=== PATIENT | female | born 1960 | race African-American/Black ===

== ENCOUNTER 2016-11-07 09:53 | Inpatient (IN) | payer MEDICAID ==
[~2016-11-07] VITALS: Ht 177.8 cm; Wt 87.6 kg
[~2016-11-07 09:53] MED LIST: COREG; LEVOXYL; LEXAPRO; RALT400T PO; [UNRECOGNIZED DRUG - CODE]; [UNRECOGNIZED DRUG - OTHER]
[2016-11-07 10:08] VITALS: BP 150/94
--- NOTE | 2016-11-07 10:16 | NUR ---
PT AMBULATED TO BED 3.
--- NOTE | 2016-11-07 10:20 | NUR ---
PT C/O CHEST PAIN 10/10 WITH N/V/D SINCE LAST NIGHT; HX; HIV, CHF, HEART ATTACK . SKIN IS PINK/WARM/DRY; AAOX4 WITH EVEN AND STEADY GAIT; HR EVEN AND REGULAR; PT DENIES ANY FEVER, SOB, OR COUGH AT THIS TIME; PATIENT STATES PAIN OF 10/10 AT THIS TIME; VSS; PATIENT POSITIONED FOR COMFORT; HOB ELEVATED; BEDRAILS UP X2; BED DOWN. ER MD MADE AWARE OF PT STATUS.
--- NOTE | 2016-11-07 10:45 | NUR ---
ER MD DR. WARREN EVALUATING PT AT BEDSIDE.
[2016-11-07] MEDS ORDERED: NACL 0.9% 1,000 ML IV ONE (10:56)
[2016-11-07] MEDS ORDERED: ONDANSETRON 4 MG/2 ML VIAL IVP ONE (11:00)
[2016-11-07 11:20] LABS: BASOPHILS # (AUTO) 0.1 K/uL (0.00-0.22); EOSINOPHILS # (AUTO) 0.4 K/uL (0-0.4); EOSINOPHILS % (AUTO) 5.7 % (0.0-4.0); HEMATOCRIT 44.2 % (36-48); HEMOGLOBIN 14.8 g/dL (12.0-16.0); LYMPHOCYTES % (AUTO) 12.9 % (20.5-51.1); MEAN CORPUSCULAR HEMOGLOBIN 33 pg (27-31); MEAN CORPUSCULAR HGB CONC 33 g/dL (33-37); MEAN CORPUSCULAR VOLUME 98 fL (80-94); MONOCYTES # (AUTO) 0.4 K/uL (0.8-1.0); MONOCYTES % (AUTO) 4.7 % (1.7-9.3); NEUTROPHILS # (AUTO) 5.9 K/uL (1.8-7.7); NEUTROPHILS % (AUTO) 75.7 % (42.2-75.2); PLATELET COUNT (AUTO) 121 K/uL (140-450); RED BLOOD CELL COUNT(AUTO) 4.53 MIL/uL (4.20-5.40); RED CELL DISTRIBUTION WIDTH 13.1 % (11.6-13.7); WHITE BLOOD COUNT (AUTO) 7.8 K/uL (4.8-10.8)
[2016-11-07] MEDS ORDERED: KETOROLAC 30 MG/ML VIAL IVP ONE (11:25)
--- NOTE | 2016-11-07 11:26 | NUR ---
Patient taken to CT scan via gurney by [employer].
[2016-11-07 11:33] LABS: ANION GAP 12.5 (8-16); CARBON DIOXIDE 26.1 mmol/L (21-32); CREATININE 1.2 mg/dL (0.6-1.3); POTASSIUM 3.6 mmol/L (3.5-5.1)
[2016-11-07 11:38] LABS: ALBUMIN 3.9 g/dL (3.4-5.0); TOTAL BILIRUBIN 0.7 mg/dL (0.0-1.0)
[2016-11-07] MEDS ORDERED: ALBUTEROL SULFATE/IPRATROPIU 3 ML SOL IH ONE (12:15)
--- NOTE | 2016-11-07 12:17 | NUR ---
RT AT BEDSIDE.
--- NOTE | 2016-11-07 12:21 | NUR ---
Breathing treatment administered by respiratory therapist at bedside.
[2016-11-07] MEDS: NACL 0.9% 1,000 ML IV SCH (12:48)
[2016-11-07 12:50] LABS: APPEARANCE,URINE HAZY (CLEAR); BILIRUBIN,URINE 1+ (NEGATIVE); BLOOD, URINE 3+ (NEGATIVE); COLOR,URINE YELLOW (YELLOW); LEUKOCYTE ESTERASE ,URINE 1+ (NEGATIVE); NITRITE, URINE NEGATIVE (NEGATIVE); UGLUCOSE NEGATIVE (NEGATIVE)
[2016-11-07] MEDS ORDERED: ACETAMINOPHEN 325 MG TAB PO PRN (12:50)
[2016-11-07] MEDS ORDERED: HYDROcodone/APAP 7.5/325 MG 1 TAB PO PRN (12:50)
[2016-11-07] MEDS ORDERED: ONDANSETRON 4 MG/2 ML VIAL IM/IVP PRN (12:50)
[2016-11-07] MEDS ORDERED: DOCUSATE SODIUM 100 MG GELCAP PO PRN (12:50)
--- NOTE | 2016-11-07 12:58 | NUR ---
[facility] residents evaluating patient at bedside.
[2016-11-07 13:00] LABS: WBC,URINE 6-15 (FEW) /HPF (0-5)
[2016-11-07 13:02] LABS: RBC,URINE 11-20 (MOD) /HPF (0-5)
[2016-11-07 13:33] LABS: MAGNESIUM 1.8 mg/dL (1.8-2.4); PHOSPHORUS 2.7 mg/dL (2.5-4.9); THYROID STIMULATING HORMONE 2.88 uIU/mL (0.34-3.74)
--- NOTE | 2016-11-07 13:37 | NUR ---
PT STATED PAIN RELIEVED. BP 129/92, HR 81, O2 SAT 95%, RR 18. LUZ LTRANSFER PT TO TELE 113, REPORT GIVEN TO COTTON STRIPPER JAY.
--- NOTE | 2016-11-07 13:45 | NUR ---
TRANSFFERED PT TO TELE.ACCOMPANIED BY RN AND EMT.
[2016-11-07 14:25] VITALS: BP 123/98
--- NOTE | 2016-11-07 14:35 | NUR ---
RECEIVED PATIENT FROM ER NURSE, NO SIGNS AND SYMPTOMS OF DISTRESS NOTED AT THIS TIME. PATIENT IS ALERT AND ORIENTED X4, ON RM AIR, HAS NO COMPLAINTS OF PAIN AT THIS TIME. CALL LIGHT WITHIN REACH.
[2016-11-07 15:53] LABS: BARBITURATE, URINE NEG. ng/ml (NEG <=200); BENZODIAZEPINE, URINE NEG. ng/mL (NEG <=200); CANNABINOID, URINE NEG. ng/mL (NEG <=50); COCAINE, URINE POS. ng/mL (NEG <=300); OPIATE, URINE NEG. ng/mL (NEG <=2000); PHENCYCLIDINE SCREEN,URINE NEG. ng/mL (NEG <=25)
[2016-11-07] MEDS ORDERED: ALBUTEROL SULFATE/IPRATROPIU 3 ML SOL IH PRN (15:55)
[2016-11-07 16:00] VITALS: BP 134/87
--- NOTE | 2016-11-07 16:30 | NUR ---
SCDS PLACED ON PATIENT.
--- NOTE | 2016-11-07 17:15 | NUR ---
AWAKE AND ALERT RESPONSIVE TO UNIT CONTROL WORKER VERBAL COMMANDS SFW POSITION ASSESSMENT DONE PATIENT C/O OF ABDOMINAL PAIN AND SOB HHN PRN THERAPY GIVEN AT THIS TIME MONSE/RN AT BEDSIDE AWARE OF ABDOMINAL PAIN
[2016-11-07] MEDS: MORPHINE SULFATE 2 MG/ML SYR IVP PRN (17:32)
[2016-11-07] MEDS ORDERED: LEVOFLOXACIN 750 MG/D5W PREMIX 150 ML IV SCH (18:00)
--- NOTE | 2016-11-07 18:00 | NUR ---
PT MEDICATED FOR DISCOMFORT. NO S/S OF ACUTE DISTRESS NOTED. ALERT AND ORIENTED.
[2016-11-07] MEDS: ALBUTEROL SULFATE/IPRATROPIU 3 ML SOL IH SCH (19:22)
[2016-11-07] MEDS: BUDESONIDE 0.25 MG/2 ML NEBU INH SCH (19:22)
--- NOTE | 2016-11-07 19:48 | NUR ---
ENDORSED PLAN OF CARE TO NIGHT NURSE AT PT BEDSIDE. NO S/S OF ACUTE DISTRESS NOTED.
--- NOTE | 2016-11-07 19:50 | NUR ---
RECEIVED REPORT FROM DAY RN. PATIENT RESTING IN BED, AWAKE ALERT ORIENTED X 4, NO S/S OF ACUTE DISTRESS NOTED, IV PATENT AND INTACT, INFUSING NS AT 50ML/HR. PATIENT DENIES PAIN AT THIS TIME. RESPIRATION EVEN AND UNLABORED, CALL LIGHT WITHIN REACH, SAFETY MEASURE ENSURED, WILL CONTINUE TO MONITOR.
[2016-11-07 20:00] VITALS: BP 135/94
[2016-11-07] MEDS: GABAPENTIN 100 MG CAP PO SCH (20:51)
--- NOTE | 2016-11-07 20:55 | NUR ---
PM MEDICATION GIVEN, PATIENT TOLERATED WELL. WILL CONTINUE TO MONITOR
[2016-11-08] VITALS: BP 127/83
--- NOTE | 2016-11-08 00:35 | NUR ---
PATIENT ASLEEP IN BED, NO S/S OF ACUTE DISTRESS NOTED, RESPIRATION EVEN AND UNLABORED, CALL LIGHT WITHIN REACH, SAFETY MEASURE ENSURED, WILL CONTINUE TO MONITOR.
[2016-11-08] MEDS: ALBUTEROL SULFATE/IPRATROPIU 3 ML SOL IH SCH ×3 (01:00→14:00)
--- NOTE | 2016-11-08 01:10 | NUR ---
0110 PT ASLEEP DID NOT DISTURB. NO SOB NOTED
[2016-11-08] MEDS: NACL 0.9% 1,000 ML IV SCH (02:40)
--- NOTE | 2016-11-08 02:40 | NUR ---
PATIENT ASLEEP IN BED, NO S/S OF ACUTE DISTRESS NOTED, RESPIRATION EVEN AND UNLABORED, CALL LIGHT WITHIN REACH, SAFETY MEASURE ENSURED, WILL CONTINUE TO MONITOR.
[2016-11-08 04:00] VITALS: BP 116/76
[2016-11-08] MEDS: MORPHINE SULFATE 2 MG/ML SYR IVP PRN ×2 (04:32→10:33)
--- NOTE | 2016-11-08 04:39 | NUR ---
PATIENT STILL SLEEPING, NO S/S OF ACUTE DISTRESS NOTED, RESPIRATION EVEN AND UNLABORED, CALL LIGHT WITHIN REACH, SAFETY MEASURE ENSURED, WILL CONTINUE TO MONITOR.
[2016-11-08 05:57] LABS: BASOPHILS # (AUTO) 0.1 K/uL (0.00-0.22); BASOPHILS % (AUTO) 1.9 % (0.0-2.0); EOSINOPHILS # (AUTO) 0.4 K/uL (0-0.4); EOSINOPHILS % (AUTO) 8.2 % (0.0-4.0); HEMATOCRIT 40.3 % (36-48); HEMOGLOBIN 13.1 g/dL (12.0-16.0); LYMPHOCYTES # (AUTO) 1.1 K/uL (2.5-16.5); LYMPHOCYTES % (AUTO) 20.3 % (20.5-51.1); MEAN CORPUSCULAR HEMOGLOBIN 32 pg (27-31); MEAN CORPUSCULAR HGB CONC 33 g/dL (33-37); MEAN CORPUSCULAR VOLUME 97 fL (80-94); MONOCYTES # (AUTO) 0.5 K/uL (0.8-1.0); MONOCYTES % (AUTO) 8.9 % (1.7-9.3); NEUTROPHILS # (AUTO) 3.3 K/uL (1.8-7.7); NEUTROPHILS % (AUTO) 60.7 % (42.2-75.2); PLATELET COUNT (AUTO) 98 K/uL (140-450); RED BLOOD CELL COUNT(AUTO) 4.14 MIL/uL (4.20-5.40); RED CELL DISTRIBUTION WIDTH 12.9 % (11.6-13.7); WHITE BLOOD COUNT (AUTO) 5.4 K/uL (4.8-10.8)
[2016-11-08 06:15] LABS: ANION GAP 12.4 (8-16); CREATININE 1.2 mg/dL (0.6-1.3); POTASSIUM 3.4 mmol/L (3.5-5.1)
[2016-11-08 06:16] LABS: MAGNESIUM 1.8 mg/dL (1.8-2.4); PHOSPHORUS 2.9 mg/dL (2.5-4.9)
[2016-11-08] MEDS ORDERED: LEVOTHYROXINE 0.025 MG TAB PO SCH (06:30)
--- NOTE | 2016-11-08 07:17 | NUR ---
ASPIRIN 81MG GIVEN ORDERED, PATIENT TOLERATED WELL.
--- NOTE | 2016-11-08 07:17 | NUR ---
PATIENT HAS BEEN SCREENED AND CATEGORIZED HIGH NUTRITION RISK. PATIENT WILL BE SEEN WITHIN 1-2 DAYS OF ADMISSION. 11/08/16-11/09/[address]
[2016-11-08] MEDS ORDERED: ECOTRIN 81 MG TABEC PO SCH (07:30)
--- NOTE | 2016-11-08 07:30 | NUR ---
RECEIVED REPORT FROM BAND MACHINE OPERATOR RN FOR CONTINUITY OF CARE. PATIENT SLEEPING BUT EASILY AWAKEN WITH INITIAL ASSESSMENT. NO S/S OF RESP DISTRESS NOTED . IV SITE RT FA GAUGE 20 INTACT AND PATENT , IVF INFUSING WELL. PLAN OF CARE DISCUSSED WITH PATIENT, PT VERBALIZED UNDERSTANDING. VITALS STABLE AT THIS TIME. NO C/O PAIN AT THIS TIME. WILL CONTINUE TO MONITOR.
--- NOTE | 2016-11-08 07:32 | NUR ---
REPORT GIVEN TO DAY RN. PATIENT RESTING IN BED, NO S/S OF ACUTE DISTRESS NOTED, IN STABLE CONDITION.
[2016-11-08 07:33] LABS: T4 (THYROXINE) 5.9 ug/dL (4.5-12.0)
[2016-11-08] MEDS: BUDESONIDE 0.25 MG/2 ML NEBU INH SCH (07:35)
--- NOTE | 2016-11-08 07:35 | NUR ---
ASLEEP EASILY AWAKENS RESONSIVE TO OUTER DIAMETER GRINDER TOOL COMMANDS LFW POSITION ON LEFT SIDE
[2016-11-08] MEDS: GABAPENTIN 100 MG CAP PO SCH (08:36)
[2016-11-08] MEDS ORDERED: LISINOPRIL 5 MG TAB PO SCH (09:00)
[2016-11-08] MEDS ORDERED: ATORVASTATIN 20 MG TAB PO SCH (09:00)
[2016-11-08] MEDS ORDERED: METOPROLOL SUCCINATE 50 MG TABER PO SCH (09:00)
[2016-11-08] MEDS ORDERED: SERTRALINE 50 MG TAB PO SCH (09:00)
--- NOTE | 2016-11-08 09:05 | NUR ---
[facility] SPOKE [facility] SUSSY[facility] HE SAID THEY ARE DELIGATED FOR THIS PATIENT. FAX REVIEW TO THEM AT [phone]. THE PHYSICAL EDUCATION SPECIALIST IS MILLA [phone],. FAXED INITIAL REVIEW. CALLED [employer] AND SPOKE WITH RAMON. SHE SAID ONLY FAX REVIEWS TO [employer], NOT TO [facility].
--- NOTE | 2016-11-08 09:47 | NUR ---
11/08/16 RD INITIAL ASSESSMENT COMPLETED PLEASE REFER TO NUTRITION ASSESSMENT UNDER CARE ACTIVITY FOR ESTIMATED NUTRITIONAL NEEDS. 1. CONTINUE CARDIAC DIET 2. RD TO FOLLOW UP WITHIN 2-3 DAYS; HIGH RISK GEOVANI FRIEND RD
--- NOTE | 2016-11-08 10:00 | NUR ---
RECEIVED REPORT FROM BRENT ACEVES FOR CONTINUITY OF CARE. PATIENT AWAKE ALERT AND ORIENTED X 4 NO S/S OF RESP DISTRESS NOTED C/O OF CHEST PAIN WILL MEDICATE. IV SITE RT FA GAUGE 20 INTACT AND PATENT , IVF INFUSING WELL. PLAN OF CARE DISCUSSED WITH THE PATIENT VITALS STABLE WILL CONTINUE TO MONITOR.
--- NOTE | 2016-11-08 10:19 | NUR ---
RECEIVED A CALL FROM MIGUEL ÁNGEL FROM [employer] SHE REQUESTED REVIEW SENT TO HER AT [phone] PHONE [phone]. REVIEW FAXED.
[2016-11-08 10:31] VITALS: BP 112/62
--- NOTE | 2016-11-08 10:35 | NUR ---
C/O CHEST PAIN /10 MEDICATED WITH MORPHINE 2 MG IVP. VITALS STABLE.
[2016-11-08] MEDS ORDERED: DOLU25TA PO (12:05)
[2016-11-08] MEDS ORDERED: EMTR1TAB16 PO (12:05)
[2016-11-08] MEDS ORDERED: QUET200T PO (12:06)
[2016-11-08] MEDS ORDERED: SYN.1 PO (12:08)
[2016-11-08] MEDS ORDERED: GABA800T3 PO (12:08)
[2016-11-08] MEDS ORDERED: SERT100T1 PO (12:08)
--- NOTE | 2016-11-08 15:40 | NUR ---
PATIENT WANTED TO GO HOME BUT REFUSED TO SIGN AMA PAPER DR CAVAZOS(RESIDENT) EXPLAIN THE HIGH RISK OF LEAVING AGAINST MEDICAL ADVISE , RECOMMENDED THE LONG WALL SHEAR OPERATOR TO COME AND SEE HER BUT PATIENT STILL REFUSED TO STAY AND WANTED TO GO. HOME MEDS GIVEN REMOVED IV LINE .
--- NOTE | 2016-11-08 16:00 | NUR ---
PATIENT CALM AND QUITE STATED WANTED TO STAY UNTIL SHE GETS A DISCHARGE . VITALS STABLE NOTIFIED MD WILL CONTINUE TO MONITOR.
--- NOTE | 2016-11-08 17:22 | NUR ---
DISCHARGE INSTRUCTION GIVEN VERBALIZED UNDERSTANDING, ALL PAPER WORK SIGNED BY THE PATIENT HOME MEDS GIVEN . D/C PATIENT HOME ACCOMPANY BY HER FAMILY MEMBER . STABLE CONDITION UPON DISCHARGE.
[2016-11-08 17:24] VITALS: BP 120/69
--- NOTE | 2016-11-12 07:54 | NUR ---
PER REQUEST OF MILLA FROM [employer], DISCHARGE SUMMARY FAXED TO HER AT [phone]
== END 2016-11-08 17:27 | disposition home or self-care (01) | DRG 465 ==
LOC: MED 09:53 → MTU 12:53
PROVIDERS: ADMIT Family Medicine; ATTEND Family Medicine
DX: N20.0 Calculus of kidney (principal); N17.0 Acute kidney failure with tubular necrosis; I11.0 Hypertensive heart disease with heart failure; I50.9 Heart failure, unspecified; D69.6 Thrombocytopenia, unspecified; N39.0 Urinary tract infection, site not specified; E03.9 Hypothyroidism, unspecified; F32.9 Major depressive disorder, single episode, unspecified; F17.210 Nicotine dependence, cigarettes, uncomplicated; B19.20 Unspecified viral hepatitis C without hepatic coma; J44.9 Chronic obstructive pulmonary disease, unspecified; I25.2 Old myocardial infarction; Z90.49 Acquired absence of other specified parts of digestive tract; Z79.899 Other long term (current) drug therapy
CPT/HCPCS: 36415; 71020; 80048; 80053; 80305; 81001; 82150; 83036; 83690; 83735; 83880; 84100; 84436; 84443; 84479; 84484; 85025; 87081; 87086; 93005; 94640; 96374; 96375; 99285; J1885; J1956; J2270; J2405; J7030; J7620; J7626

== ENCOUNTER 2018-12-22 10:45 | Inpatient (IN) | payer MEDICAID ==
[~2018-12-22] VITALS: Ht 177.8 cm; Wt 85.3 kg
[~2018-12-22 10:45] MED LIST changes: -COREG; +DOLU25TA PO; +EMTR1TAB16 PO; +GABA800T6 PO; -LEVOXYL; -LEXAPRO; +QUET200T PO; -RALT400T PO; +SERT100T1 PO; +SYN.1 PO; -[UNRECOGNIZED DRUG - OTHER]
[2018-12-22 10:57] VITALS: BP 135/95
[2018-12-22] MEDS ORDERED: predniSONE 20 MG TAB PO ONE (11:25)
[2018-12-22] MEDS ORDERED: IPRATROPIUM 0.02% 0.5 MG/2.5 ML NEBU INH ONE (11:25)
[2018-12-22] MEDS ORDERED: ALBUTEROL 0.083% 2.5 MG/3 ML NEBU INH ONE (11:25)
[2018-12-22 12:31] LABS: BASOPHILS # (AUTO) 0.1 K/uL (0.00-0.22); BASOPHILS % (AUTO) 0.5 % (0.0-2.0); EOSINOPHILS # (AUTO) 0.2 K/uL (0-0.4); EOSINOPHILS % (AUTO) 1.4 % (0.0-4.0); HEMATOCRIT 40.7 % (36-48); HEMOGLOBIN 13.5 g/dL (12.0-16.0); LYMPHOCYTES # (AUTO) 3.3 K/uL (2.5-16.5); LYMPHOCYTES % (AUTO) 26.2 % (20.5-51.1); MEAN CORPUSCULAR HEMOGLOBIN 31 pg (27-31); MEAN CORPUSCULAR HGB CONC 33 g/dL (33-37); MEAN CORPUSCULAR VOLUME 94.5 fL (80-94); MONOCYTES # (AUTO) 0.6 K/uL (0.8-1.0); MONOCYTES % (AUTO) 4.5 % (1.7-9.3); NEUTROPHILS # (AUTO) 8.5 K/uL (1.8-7.7); NEUTROPHILS % (AUTO) 67.4 % (42.2-75.2); PLATELET COUNT (AUTO) 125 K/uL (140-450); RED BLOOD CELL COUNT(AUTO) 4.31 MIL/uL (4.20-5.40); RED CELL DISTRIBUTION WIDTH 13.3 % (11.6-13.7); WHITE BLOOD COUNT (AUTO) 12.6 K/uL (4.8-10.8)
[2018-12-22 12:42] LABS: ANION GAP 15.1 (8-16); CARBON DIOXIDE 25.6 mmol/L (21-32); CREATININE 1.1 mg/dL (0.6-1.3); POTASSIUM 3.7 mmol/L (3.5-5.1)
[2018-12-22 12:45] LABS: PROTHROMBIN TIME 10.1 secs (10.8-13.4)
[2018-12-22 12:48] LABS: ALBUMIN 3.7 g/dL (3.4-5.0); TOTAL BILIRUBIN 0.7 mg/dL (0.0-1.0)
[2018-12-22 13:24] LABS: BILIRUBIN,URINE NEGATIVE (NEGATIVE); NITRITE, URINE NEGATIVE (NEGATIVE); UGLUCOSE NEGATIVE (NEGATIVE)
[2018-12-22] MEDS ORDERED: SULFAMETH/TRIMETH DS 800/160MG 1 TAB PO ONE (14:25)
[2018-12-22] MEDS ORDERED: cefTRIAXone 1,000 MG VIAL ONE (14:27)
[2018-12-22] MEDS ORDERED: ACETAMINOPHEN 325 MG TAB PO PRN (14:30)
[2018-12-22] MEDS ORDERED: ONDANSETRON 4 MG/2 ML VIAL IM/IVP PRN (14:30)
[2018-12-22] MEDS ORDERED: HYDROcodone/APAP 7.5/325 MG 1 TAB PO PRN (14:30)
[2018-12-22] MEDS ORDERED: MORPHINE SULFATE 2 MG/ML SYR IVP PRN (14:30)
[2018-12-22] MEDS ORDERED: DOCUSATE SODIUM 100 MG GELCAP PO PRN (14:30)
[2018-12-22 15:00] VITALS: BP 113/80
[2018-12-22] MEDS: NACL 0.9% 1,000 ML IV SCH (16:03)
[2018-12-22 16:24] LABS: CHOL/HDL RATIO 2.8 (1-4.5); FREE T4 (FREE THYROXINE) 1.31 ng/dL (0.76-1.46); MAGNESIUM 1.9 mg/dL (1.8-2.4); PHOSPHORUS 3.2 mg/dL (2.5-4.9); THYROID STIMULATING HORMONE 0.55 uIU/mL (0.34-3.74)
[2018-12-22] MEDS: AZITHROMYCIN 250 MG in DEXTROSE 5% 250 ML IV SCH (18:25)
[2018-12-22 20:00] VITALS: BP 121/73
[2018-12-22] MEDS: ALBUTEROL SULFATE/IPRATROPIU 3 ML SOL IH SCH (20:38)
[2018-12-22] MEDS: QUEtiapine FUMARATE 100 MG TAB PO SCH ×2 (21:00→21:11)
[2018-12-22 21:04] LABS: BARBITURATE, URINE NEG. ng/ml (NEG <=200); BENZODIAZEPINE, URINE NEG. ng/mL (NEG <=200); CANNABINOID, URINE NEG. ng/mL (NEG <=50); COCAINE, URINE NEG. ng/mL (NEG <=300); OPIATE, URINE NEG. ng/mL (NEG <=2000); PHENCYCLIDINE SCREEN,URINE NEG. ng/mL (NEG <=25)
[2018-12-22 21:20] LABS: APPEARANCE,URINE CLEAR (CLEAR); COLOR,URINE YELLOW (YELLOW)
[2018-12-22 21:21] LABS: BLOOD, URINE NEGATIVE (NEGATIVE); LEUKOCYTE ESTERASE ,URINE NEGATIVE (NEGATIVE); PH,URINE 5.5 (5.0-9.0)
[2018-12-22 21:27] LABS: RBC,URINE 0-5 /HPF (0-5); WBC,URINE 0-5 /HPF (0-5)
[2018-12-23] VITALS: BP 114/81
[2018-12-23] MEDS: NACL 0.9% 1,000 ML IV SCH ×3 (03:24→15:54)
[2018-12-23 04:00] VITALS: BP 119/78
[2018-12-23] MEDS: LEVOTHYROXINE 0.1 MG TAB PO SCH (05:42)
[2018-12-23 06:48] LABS: BASOPHILS % (AUTO) 0.4 % (0.0-2.0); EOSINOPHILS % (AUTO) 0.3 % (0.0-4.0); HEMATOCRIT 38.3 % (36-48); HEMOGLOBIN 12.7 g/dL (12.0-16.0); LYMPHOCYTES # (AUTO) 2.7 K/uL (2.5-16.5); LYMPHOCYTES % (AUTO) 21.5 % (20.5-51.1); MEAN CORPUSCULAR HEMOGLOBIN 31 pg (27-31); MEAN CORPUSCULAR HGB CONC 33 g/dL (33-37); MEAN CORPUSCULAR VOLUME 94.6 fL (80-94); MONOCYTES # (AUTO) 0.8 K/uL (0.8-1.0); MONOCYTES % (AUTO) 6.1 % (1.7-9.3); NEUTROPHILS % (AUTO) 71.7 % (42.2-75.2); PLATELET COUNT (AUTO) 124 K/uL (140-450); RED BLOOD CELL COUNT(AUTO) 4.04 MIL/uL (4.20-5.40); RED CELL DISTRIBUTION WIDTH 13.3 % (11.6-13.7); WHITE BLOOD COUNT (AUTO) 12.5 K/uL (4.8-10.8)
[2018-12-23] MEDS: ALBUTEROL SULFATE/IPRATROPIU 3 ML SOL IH SCH ×3 (06:53→19:02)
[2018-12-23 07:49] LABS: ANION GAP 15.7 (8-16); CARBON DIOXIDE 23.4 mmol/L (21-32); CREATININE 1.1 mg/dL (0.6-1.3); POTASSIUM 4.1 mmol/L (3.5-5.1)
[2018-12-23] MEDS ORDERED: SERTRALINE 50 MG TAB PO SCH (09:00)
[2018-12-23] MEDS ORDERED: COMMUNICATION ORDER MC SCH ×2 (09:00)
[2018-12-23] MEDS ORDERED: ENALAPRIL 5 MG TAB PO SCH (09:00)
[2018-12-23] MEDS ORDERED: GABAPENTIN 300 MG CAP PO SCH (09:00)
[2018-12-23] MEDS ORDERED: SULFAMETH/TRIMETH DS 800/160MG 1 TAB PO SCH (09:00)
[2018-12-23] MEDS ORDERED: LACTOBACILLUS RHAMNOSUS GG 1 EACH CAP PO SCH (09:00)
[2018-12-23] MEDS ORDERED: BENZONATATE 100 MG CAPLF PO PRN (10:00)
[2018-12-23] MEDS ORDERED: LOPERAMIDE 2 MG CAP PO PRN (11:20)
[2018-12-23] MEDS ORDERED: DESCOVY PO SCH ×2 (13:00)
[2018-12-23 16:00] VITALS: BP 118/73
[2018-12-23] MEDS: AZITHROMYCIN 250 MG in DEXTROSE 5% 250 ML IV SCH (17:29)
[2018-12-23] MEDS: QUEtiapine FUMARATE 100 MG TAB PO SCH (21:00)
[2018-12-24] VITALS: BP 130/81
[2018-12-24] MEDS: NACL 0.9% 1,000 ML IV SCH ×2 (00:42→04:24)
[2018-12-24] MEDS: LEVOTHYROXINE 0.1 MG TAB PO SCH (05:47)
== END 2018-12-24 06:59 | disposition left against medical advice (07) | DRG 892 ==
LOC: MED 10:45 → MTU 14:35
PROVIDERS: ADMIT Family Medicine; ATTEND Family Medicine
DX: A41.9 Sepsis, unspecified organism (principal); B20 Human immunodeficiency virus [HIV] disease; J18.9 Pneumonia, unspecified organism; I11.0 Hypertensive heart disease with heart failure; D69.6 Thrombocytopenia, unspecified; I50.9 Heart failure, unspecified; E03.9 Hypothyroidism, unspecified; F32.9 Major depressive disorder, single episode, unspecified; J44.0 Chronic obstructive pulmonary disease with (acute) lower respiratory infection; N39.0 Urinary tract infection, site not specified; B19.20 Unspecified viral hepatitis C without hepatic coma; Z79.899 Other long term (current) drug therapy; Z90.49 Acquired absence of other specified parts of digestive tract; Z82.49 Family history of ischemic heart disease and other diseases of the circulatory system; Z87.891 Personal history of nicotine dependence
CPT/HCPCS: 36415; 36600; 71045; 80048; 80053; 80305; 81001; 82550; 82803; 83036; 83605; 83615; 83690; 83735; 83880; 84100; 84439; 84443; 84484; 85025; 85610; 85730; 86360; 87040; 87081; 87804; 93005; 94640; 96365; 99285; J0456; J0696; J7030; J7060; J7512; J7613; J7620; J7644; Q0092

== ENCOUNTER 2019-09-17 17:50 | Inpatient (IN) | payer MEDICAID, SELFPAY ==
[~2019-09-17] VITALS: Ht 170.2 cm; Wt 70.3 kg
[2019-09-17 18:01] VITALS: BP 153/118
--- NOTE | 2019-09-17 18:08 | NUR ---
PT W/C ASSISTED TO BED 2.
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
[2019-09-17] MEDS ORDERED: NITROGLYCERIN 0.4 MG TAB SL ONE (18:35)
[2019-09-17] MEDS ORDERED: ASPIRIN 325 MG TAB PO ONE (18:35)
[2019-09-17] MEDS ORDERED: FUROSEMIDE 40 MG/4 ML VIAL IVP ONE (18:35)
[2019-09-17 18:57] LABS: BASOPHILS % (AUTO) 0.8 % (0.0-2.0); EOSINOPHILS # (AUTO) 0.1 K/uL (0-0.4); EOSINOPHILS % (AUTO) 2.5 % (0.0-4.0); HEMATOCRIT 43.6 % (36-48); HEMOGLOBIN 14.5 g/dL (12.0-16.0); LYMPHOCYTES # (AUTO) 3.1 K/uL (2.5-16.5); LYMPHOCYTES % (AUTO) 51.3 % (20.5-51.1); MEAN CORPUSCULAR HEMOGLOBIN 32 pg (27-31); MEAN CORPUSCULAR HGB CONC 33 g/dL (33-37); MEAN CORPUSCULAR VOLUME 96.2 fL (80-94); MONOCYTES # (AUTO) 0.4 K/uL (0.8-1.0); NEUTROPHILS # (AUTO) 2.3 K/uL (1.8-7.7); NEUTROPHILS % (AUTO) 38.4 % (42.2-75.2); PLATELET COUNT (AUTO) 123 K/uL (140-450); RED BLOOD CELL COUNT(AUTO) 4.53 MIL/uL (4.20-5.40); RED CELL DISTRIBUTION WIDTH 13.4 % (11.6-13.7); WHITE BLOOD COUNT (AUTO) 5.9 K/uL (4.8-10.8)
[2019-09-17 19:17] LABS: ANION GAP 17.7 (8-16); CARBON DIOXIDE 22.7 mmol/L (21-32); CREATININE 1.1 mg/dL (0.6-1.3); POTASSIUM 3.4 mmol/L (3.5-5.1)
--- NOTE | 2019-09-17 19:20 | NUR ---
Pt report given to YOLA Rose. Transfer of care at this time.
--- NOTE | 2019-09-17 19:20 | NUR ---
REPORT RECEIVED FROM MIMI ACEVES FOR CONTINUITY OF CARE.
[2019-09-17 19:22] LABS: ALBUMIN 3.6 g/dL (3.4-5.0); TOTAL BILIRUBIN 0.6 mg/dL (0.0-1.0)
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
[2019-09-17 19:37] LABS: PROTHROMBIN TIME 10.7 secs (10.8-13.4)
[2019-09-17] MEDS ORDERED: ALBUTEROL SULFATE/IPRATROPIU 3 ML SOL IH ONE (20:25)
[2019-09-17] MEDS ORDERED: methylPREDNISolone SS 125 MG in WATER STERILE 2 ML IV ONE (20:25)
[2019-09-17] MEDS ORDERED: WATER STERILE 10 ML MC ONE (20:30)
[2019-09-17] MEDS ORDERED: methylPREDNISolone SS 125 MG/2 ML VIAL ONE (20:30)
[2019-09-17] MEDS ORDERED: ONDANSETRON 4 MG/2 ML VIAL IVP PRN (20:45)
[2019-09-17] MEDS ORDERED: ACETAMINOPHEN 325 MG TAB PO PRN (20:45)
[2019-09-17] MEDS ORDERED: HYDROcodone/APAP 7.5/325 MG 1 TAB PO PRN (20:45)
--- NOTE | 2019-09-17 20:49 | NUR ---
IV REESTABLISHED TO RIGHT FOREARM, 22G, PT TOLERATED WELL.
[2019-09-17] MEDS ORDERED: DOCUSATE SODIUM 100 MG GELCAP PO SCH (21:00)
[2019-09-17] MEDS ORDERED: EMTR1TAB16 PO (21:06)
[2019-09-17] MEDS ORDERED: DOLU50TA PO (21:06)
[2019-09-17] MEDS ORDERED: SYN.05 PO (21:06)
[2019-09-17] MEDS ORDERED: ASPI-1822 PO (21:06)
[2019-09-17] MEDS ORDERED: PRE.3 PO (21:06)
[2019-09-17] MEDS ORDERED: FURO-572 PO (21:06)
[2019-09-17] MEDS ORDERED: OXYC40TE66 PO (21:06)
[2019-09-17] MEDS ORDERED: LISI2.5T12 PO (21:06)
[2019-09-17] MEDS ORDERED: CARV3.12 PO (21:06)
[2019-09-17 21:14] LABS: BARBITURATE, URINE NEGATIVE ng/ml (NEG <=200); BENZODIAZEPINE, URINE NEGATIVE ng/mL (NEG <=200); CANNABINOID, URINE NEGATIVE ng/mL (NEG <=50); COCAINE, URINE POSITIVE ng/mL (NEG <=300); OPIATE, URINE NEGATIVE ng/mL (NEG <=2000); PHENCYCLIDINE SCREEN,URINE NEGATIVE ng/mL (NEG <=25)
--- NOTE | 2019-09-17 21:26 | NUR ---
GAVE REPORT TO YOLA GONZALEZ. TRANSFER OF CARE AT THIS TIME.
[2019-09-17 21:27] LABS: FREE T4 (FREE THYROXINE) 1.26 ng/dL (0.76-1.46); MAGNESIUM 1.8 mg/dL (1.8-2.4); PHOSPHORUS 3.4 mg/dL (2.5-4.9); THYROID STIMULATING HORMONE 0.56 uIU/mL (0.34-3.74)
[2019-09-17] MEDS ORDERED: oxyCODONE 40 MG TABER PO PRN (21:30)
--- NOTE | 2019-09-17 21:37 | NUR ---
RECEIVED REPORT FROM KUSHAL ACEVES. PT TO BE TRANSPORTED TO TELEMETRY WHEN BED AVAILABLE
[2019-09-17 21:51] LABS: APPEARANCE,URINE CLEAR (CLEAR); BILIRUBIN,URINE NEGATIVE (NEGATIVE); BLOOD, URINE TRACE-L (NEGATIVE); COLOR,URINE YELLOW (YELLOW); LEUKOCYTE ESTERASE ,URINE TRACE (NEGATIVE); NITRITE, URINE NEGATIVE (NEGATIVE); PH,URINE 5.5 (5.0-9.0); UGLUCOSE NEGATIVE (NEGATIVE)
--- NOTE | 2019-09-17 22:05 | NUR ---
Patient will be admitted to care of DR BETH. Admited to TELE. Will go to room 107B. Belongings list completed. Report to AJZ ACEVES.
[2019-09-17 22:30] VITALS: BP 112/90
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
--- NOTE | 2019-09-17 23:00 | NUR ---
PT IS ASSISTED WITH SNACK , GOOD APPETITE
[2019-09-17 23:20] LABS: RBC,URINE 0-5 /HPF (0-5); WBC,URINE 0-5 /HPF (0-5)
[2019-09-18] VITALS: BP 120/80
--- NOTE | 2019-09-18 03:00 | NUR ---
PT HAS BEEN MONITORING CLOSE ON TELEMETRY SR;, PT AMBULATES TO THE RESTROOM
[2019-09-18 04:00] VITALS: BP 135/95
--- NOTE | 2019-09-18 04:51 | NUR ---
SPONGE BATH GIVEN PETER SHELTON ON TELE SR NOT SOB NOTED
[2019-09-18] MEDS ORDERED: LEVOTHYROXINE 0.05 MG TAB PO SCH (06:30)
[2019-09-18] MEDS: LEVOTHYROXINE 0.05 MG TAB PO SCH (06:33)
--- NOTE | 2019-09-18 07:00 | NUR ---
PT IS ENDORSED TO DAY SHIFT NURSE FOR CONTINUE OF CARE M
--- NOTE | 2019-09-18 07:16 | NUR ---
PATIENT HAS BEEN SCREENED AND CATEGORIZED MODERATE NUTRITION RISK. PATIENT WILL BE SEEN WITHIN 3-5 DAYS OF ADMISSION. 09/20/19-09/22/19 JIM HUSSEIN MS, RDN
--- NOTE | 2019-09-18 07:29 | NUR ---
RECEIVED PATIENT FROM WATER REGISTRAR NURSE FOR CONTINUITY OF CARE. PATIENT IS ASLEEP AT THIS TIME. NO SIGNS OF DISTRESS NOTED. RESPIRATIONS EVEN AND UNLABORED, ON 2L O2 VIA NC. VISIBLE CHEST RISE AND FALL NOTED. SKIN WARM, DRY, AND INTACT. IV IN THE R FA G22, SALINE LOCK. PATIENT IS CONTINENT. AMBULATES TO THE BATHROOM PER PM NURSE. SAFETY MEASURES IN PLACE. ON DROPLET PRECAUTION FOR COVID-19 R/O. ON 2G NA DIET. BED IN LOW POSITION. CALL LIGHT IS WITHIN REACH. WILL CONTINUE TO MONITOR.
[2019-09-18 08:00] VITALS: BP 141/99
[2019-09-18] MEDS ORDERED: ZOLPIDEM 10 MG TAB PO PRN (08:45)
[2019-09-18] MEDS ORDERED: LORazepam 2 MG/ML VIAL IVP PRN (08:45)
[2019-09-18] MEDS ORDERED: MAG SULF 2000 MG/WATER PREMIX 50 ML IV PRN (08:45)
[2019-09-18] MEDS ORDERED: DOCUSATE SODIUM 100 MG GELCAP PO PRN (08:45)
[2019-09-18] MEDS ORDERED: ACETAMINOPHEN 325 MG TAB PO PRN (08:45)
[2019-09-18] MEDS ORDERED: POTASSIUM CHLORIDE 10 MEQ TABER PO PRN (08:45)
[2019-09-18] MEDS ORDERED: ONDANSETRON 4 MG/2 ML VIAL IVP PRN (08:45)
[2019-09-18] MEDS ORDERED: EMTRICITABINE PO SCH (09:00)
[2019-09-18] MEDS ORDERED: DOLUTEGRAVIR SODIUM 50 MG PO SCH (09:00)
[2019-09-18] MEDS ORDERED: TENOFOV ALAFENAM PO SCH (09:00)
[2019-09-18] MEDS ORDERED: ESTROGENS CONJUGATED 0.3 MG TAB PO SCH (09:00)
--- NOTE | 2019-09-18 09:00 | NUR ---
WAS UNABLE TO GIVE PREMARIN D/T IT IS HOME MEDICATION, PATIENT DOES NOT HAVE HER WITH HER. PHARMACY STATED IT'S NO IN STOCK. ASKED PATIENT IF ANYONE FROM HER FAMILY CAN GET HER MEDICATIONS IN HER CAR, SHE STATED ONLY HER.
--- NOTE | 2019-09-18 09:12 | NUR ---
SPOKE TO THE PATIENT REGARDING HOME MEDICATIONS. SHE STATED THAT HER MEDICATIONS ARE IN HER CAR. WILL CALL SECURITY IF THEY CAN GET THE MEDICATIONS.
[2019-09-18 09:30] LABS: BASOPHILS % (AUTO) 0.7 % (0.0-2.0); HEMATOCRIT 45.2 % (36-48); LYMPHOCYTES # (AUTO) 1.3 K/uL (2.5-16.5); LYMPHOCYTES % (AUTO) 37.9 % (20.5-51.1); MEAN CORPUSCULAR HEMOGLOBIN 32 pg (27-31); MEAN CORPUSCULAR HGB CONC 33 g/dL (33-37); MEAN CORPUSCULAR VOLUME 96.1 fL (80-94); MONOCYTES # (AUTO) 0.1 K/uL (0.8-1.0); MONOCYTES % (AUTO) 2.3 % (1.7-9.3); NEUTROPHILS % (AUTO) 59.1 % (42.2-75.2); PLATELET COUNT (AUTO) 125 K/uL (140-450); RED BLOOD CELL COUNT(AUTO) 4.71 MIL/uL (4.20-5.40); RED CELL DISTRIBUTION WIDTH 13.3 % (11.6-13.7); WHITE BLOOD COUNT (AUTO) 3.4 K/uL (4.8-10.8)
--- NOTE | 2019-09-18 09:35 | NUR ---
PATIENT STATED THAT HER MEDICATIONS ARE TUCKED IN A PLACE WHERE SHE CAN FIND IT. SHE IS THE ONLY ONE WHO CAN FIND HER MEDICATIONS.
[2019-09-18 09:40] LABS: ANION GAP 17.6 (8-16); CARBON DIOXIDE 22.2 mmol/L (21-32); CREATININE 1.1 mg/dL (0.6-1.3); POTASSIUM 3.8 mmol/L (3.5-5.1)
[2019-09-18 09:53] LABS: CHOL/HDL RATIO 2.1 (1-4.5)
[2019-09-18] MEDS: ASPIRIN 81 MG TAB.CHEW PO SCH (10:04)
[2019-09-18] MEDS: SERTRALINE 50 MG TAB PO SCH (10:04)
[2019-09-18] MEDS: lisinopriL 5 MG TAB PO SCH (10:04)
[2019-09-18] MEDS: FUROSEMIDE 20 MG TAB PO SCH (10:04)
[2019-09-18] MEDS: carvediloL 3.125 MG TAB PO SCH ×2 (10:05→21:00)
[2019-09-18 10:35] LABS: MAGNESIUM 1.9 mg/dL (1.8-2.4); PHOSPHORUS 3.7 mg/dL (2.5-4.9)
[2019-09-18 12:00] VITALS: BP 140/100
[2019-09-18] MEDS: oxyCODONE 10 MG TABER PO SCH ×2 (13:01→21:00)
--- NOTE | 2019-09-18 13:01 | NUR ---
OXYCONTIN PO GIVEN FOR PAIN MANAGEMENT. PATIENT VERBALIZED UNDERSTANDING AFTER MEDICATION EDUCATION. WILL REASSESS FOR PAIN
--- NOTE | 2019-09-18 14:01 | NUR ---
PAIN REASSESSED. PATIENT ASLEEP. BED IN LOW POSITION. CALL LIGHT IS WITHIN REACH. WILL CONTINUE TO MONITOR
--- NOTE | 2019-09-18 15:10 | NUR ---
CRITICAL LAB: TROPONIN: 0.082. DR. CLAYTON MADE AWARE
[2019-09-18 16:00] VITALS: BP 134/71
--- NOTE | 2019-09-18 16:15 | NUR ---
DR. GANN SPOKE TO THE PATIENT REGARDING DIFFERENCE BETWEEN MRSA AND COVID-19 SWAB. PATIENT AGREED TO GET SWABBED FOR COVID-19. COVID-19 SWABBED COLLECTED
--- NOTE | 2019-09-18 17:50 | NUR ---
WILL START IV BUT PATIENT STATED SHE WANTS TO EAT DINNER FIRST.
--- NOTE | 2019-09-18 18:12 | NUR ---
NORCO GIVEN FOR 4/10 PAIN. WILL REASSESS FOR PAIN. PATIENT IS EATING DINNER AT THIS TIME.
[2019-09-18 20:00] VITALS: BP 137/100
[2019-09-18] MEDS ORDERED: GABAPENTIN 100 MG CAP PO SCH ×2 (21:00)
[2019-09-18] MEDS: QUEtiapine FUMARATE 100 MG TAB PO SCH (21:00)
[2019-09-18] MEDS: GABAPENTIN 300 MG CAP PO SCH (21:00)
--- NOTE | 2019-09-18 23:14 | NUR ---
PATIENT SLEEPING NOW, SPONGE BATH GIVEN EARLIER, NO SHORTNESS OF BREATH NOTED, SKIN WARM TO TOUCH RESP. EVEN AND UNLABORED, NO DISTRESS NOTED, ON O2 AT 2L/MIN , WILL CHECK PT FREQUENTLY.
--- NOTE | 2019-09-19 00:23 | NUR ---
PATIENT SLEEPING VITAL SIGN OBTAINED,
[2019-09-19 00:24] VITALS: BP 123/84
--- NOTE | 2019-09-19 01:57 | NUR ---
PATIENT SLEEPING NO UNUSUAL OBSERVATION NOTED.
--- NOTE | 2019-09-19 02:44 | NUR ---
PATIENT SLEEPING O2 SAT 98, 3L/MIN, SKIN WARM TO TOUCH RESP. EVEN AND UNLABORED.
[2019-09-19 04:30] VITALS: BP 107/71
[2019-09-19] MEDS: oxyCODONE 10 MG TABER PO SCH ×3 (05:00→21:55)
--- NOTE | 2019-09-19 06:11 | NUR ---
PT VERY SLEEPY, DIDNOT GIVE OXYCONTIN, WILL ENDORSE TO INCOMING SHIFT, NO SOB NOTED.
[2019-09-19] MEDS: LEVOTHYROXINE 0.05 MG TAB PO SCH (06:48)
[2019-09-19 06:55] LABS: CARBON DIOXIDE 24.5 mmol/L (21-32); POTASSIUM 3.5 mmol/L (3.5-5.1)
[2019-09-19 06:57] LABS: BASOPHILS % (AUTO) 0.5 % (0.0-2.0); EOSINOPHILS # (AUTO) 0.1 K/uL (0-0.4); EOSINOPHILS % (AUTO) 1.7 % (0.0-4.0); HEMATOCRIT 42.7 % (36-48); HEMOGLOBIN 14.4 g/dL (12.0-16.0); LYMPHOCYTES # (AUTO) 2.6 K/uL (2.5-16.5); MEAN CORPUSCULAR HEMOGLOBIN 32 pg (27-31); MEAN CORPUSCULAR HGB CONC 34 g/dL (33-37); MEAN CORPUSCULAR VOLUME 96.2 fL (80-94); MONOCYTES # (AUTO) 0.3 K/uL (0.8-1.0); NEUTROPHILS # (AUTO) 2.8 K/uL (1.8-7.7); PLATELET COUNT (AUTO) 99 K/uL (140-450); RED BLOOD CELL COUNT(AUTO) 4.45 MIL/uL (4.20-5.40); RED CELL DISTRIBUTION WIDTH 13.1 % (11.6-13.7); WHITE BLOOD COUNT (AUTO) 5.9 K/uL (4.8-10.8)
--- NOTE | 2019-09-19 07:04 | NUR ---
ASSISTED PT IN THE BATHROOM, PATIENT USED CANE, NO SOB NOTED.
--- NOTE | 2019-09-19 07:10 | NUR ---
RECEIVED REPORT FROM NIGHT NURSE FOR CONTINUITY OF CARE, PT IS STABLE, AAOX4, PT ASLEEP IN BED, SIDE LYING, PT ON 3L NASAL CANNULA, PT HAS RIGHT FA 22G SALINE LOCK, PT IS FALL RISK, BED IN LOW POSITION, SAFETY MEASURES IN PLACE, CALL LIGHT WITHIN REACH, ALL NEEDS MET AT THIS TIME, WILL CONTINUE TO MONITOR.
[2019-09-19 07:52] LABS: LYMPHOCYTES % (AUTO) 44.6 % (20.5-51.1); NEUTROPHILS % (AUTO) 48.2 % (42.2-75.2)
[2019-09-19 08:00] VITALS: BP 99/61
[2019-09-19] MEDS ORDERED: MAGNESIUM OXIDE 400 MG TAB PO SCH (08:45)
[2019-09-19] MEDS ORDERED: ESTROGENS CONJUGATED 0.3 MG TAB PO SCH (09:00)
[2019-09-19] MEDS: carvediloL 3.125 MG TAB PO SCH ×2 (09:00→21:00)
[2019-09-19] MEDS: FUROSEMIDE 20 MG TAB PO SCH (09:00)
[2019-09-19] MEDS: lisinopriL 5 MG TAB PO SCH (09:00)
[2019-09-19 09:06] LABS: FERRITIN 98 ng/mL (15-150); LACTATE DEHYDROGENASE 214 IU/L (119-226)
[2019-09-19] MEDS: ASPIRIN 81 MG TAB.CHEW PO SCH (09:18)
[2019-09-19] MEDS: SERTRALINE 50 MG TAB PO SCH (09:19)
--- NOTE | 2019-09-19 09:24 | NUR ---
ADMINISTERED SCHEDULED MEDICATION, MEDICATION EDUCATION GIVEN, PT VERBALIZED UNDERSTANDING, PT IS STABLE, NO SIGNS OF DISTRESS NOTED, CALL LIGHT WITHIN REACH.
[2019-09-19 12:00] VITALS: BP 90/61
--- NOTE | 2019-09-19 12:20 | NUR ---
SPOKE WITH PT REGARDING HER HIV MEDICATION, PT MADE A LIST OF MEDICATION SHE TAKES AND NEEDS TIFANI AND DENILSON, PT PHARMACY IS [facility] [phone], PER PT THE PHARMACY IS CLOSED ON FRIDAY. PT STATES SHE HAS HER MEDICATION IN CAR, BUT SHE HID THEM. PT IS HOMELESS AND HAS ALL HER BELONGING IN THE CAR, PT NOT WILLING TO GIVE CAR KEYS TO GO LOOK FOR MEDICATION PT STATES SHE HIDE THE MEDICATIONS AND IT WOULD BE DIFFICULT TO FIND HER HIDDEN MEDICATION. DR ANDERS AWARE OF SITUATION.
--- NOTE | 2019-09-19 13:00 | NUR ---
PT ASLEEP IN BED, NO SIGNS OF DISTRESS NOTED, CALL LIGHT WITHIN REACH.
--- NOTE | 2019-09-19 15:20 | NUR ---
PT ASLEEP IN BED, PT IS STABLE, NO SIGNS OF DISTRESS NOTED, CALL LIGHT WITHIN REACH.
[2019-09-19 16:00] VITALS: BP 107/75
--- NOTE | 2019-09-19 17:00 | NUR ---
PT STATES SHE IS OKAY, ALL NEEDS MET, NO SIGNS OF DISTRESS NOTED, CALL LIGHT WITHIN REACH.
--- NOTE | 2019-09-19 19:25 | NUR ---
ENDORSE PT TO NIGHT NURSE FOR CONTINUITY OF CARE, PT IS STABLE
--- NOTE | 2019-09-19 19:37 | NUR ---
RECEIVED PT SLEEPY, NO SOB NOTED ON O2 AT 3LMIN, WILL CHECK PT AGAIN LATER.
--- NOTE | 2019-09-19 21:12 | NUR ---
PT SLEEPING COMFORTABLY ON 3L NO DISTRESS NOTED
[2019-09-19] MEDS: GABAPENTIN 300 MG CAP PO SCH (21:53)
[2019-09-19] MEDS: QUEtiapine FUMARATE 100 MG TAB PO SCH (21:53)
--- NOTE | 2019-09-19 21:59 | NUR ---
PT REMOVED HIS IV ON RIGHT FOREARM, WILL TRY TO REINSERT A NEW ONE.
[2019-09-20 00:33] VITALS: BP 102/69
--- NOTE | 2019-09-20 02:18 | NUR ---
PT SLEEPING, INCENTIVE SPIROMETER WILL BE GIVEN LATER AND TEACHING, PATIENT FOR DISCHARGE NEGATIVE FOR COVID
[2019-09-20 04:01] VITALS: BP 132/87
--- NOTE | 2019-09-20 04:03 | NUR ---
PATIENT OFF OXYGEN, SLEEPING, O2 SAT N94, WILL CONTINUE TO OBSERVE PT
--- NOTE | 2019-09-20 04:08 | NUR ---
O2 SAT 93, OXYGEN OFF
[2019-09-20] MEDS: oxyCODONE 10 MG TABER PO SCH ×2 (04:55→13:02)
--- NOTE | 2019-09-20 04:56 | NUR ---
O2 SAT 95 ROOM AIR
[2019-09-20 06:42] LABS: ANION GAP 10.6 (8-16); CARBON DIOXIDE 27.1 mmol/L (21-32); POTASSIUM 3.7 mmol/L (3.5-5.1)
[2019-09-20 06:59] LABS: BASOPHILS # (AUTO) 0.1 K/uL (0.00-0.22); EOSINOPHILS # (AUTO) 0.2 K/uL (0-0.4); EOSINOPHILS % (AUTO) 3.2 % (0.0-4.0); HEMATOCRIT 44.6 % (36-48); HEMOGLOBIN 14.8 g/dL (12.0-16.0); LYMPHOCYTES # (AUTO) 2.7 K/uL (2.5-16.5); LYMPHOCYTES % (AUTO) 55.3 % (20.5-51.1); MEAN CORPUSCULAR HEMOGLOBIN 32 pg (27-31); MEAN CORPUSCULAR HGB CONC 33 g/dL (33-37); MEAN CORPUSCULAR VOLUME 96.2 fL (80-94); MONOCYTES # (AUTO) 0.3 K/uL (0.8-1.0); MONOCYTES % (AUTO) 5.6 % (1.7-9.3); NEUTROPHILS # (AUTO) 1.7 K/uL (1.8-7.7); NEUTROPHILS % (AUTO) 34.9 % (42.2-75.2); PLATELET COUNT (AUTO) 103 K/uL (140-450); RED BLOOD CELL COUNT(AUTO) 4.64 MIL/uL (4.20-5.40); RED CELL DISTRIBUTION WIDTH 13.3 % (11.6-13.7)
--- NOTE | 2019-09-20 07:07 | NUR ---
PATIENT SLEEPING ON ROOM AIR, PATIENT ABLE TO WAKE UP FOR HER SYNTHROID , NO SOB NOTED
[2019-09-20] MEDS: LEVOTHYROXINE 0.05 MG TAB PO SCH (07:10)
--- NOTE | 2019-09-20 08:00 | NUR ---
RECEIVED REPORT FROM YOLA MAY. PATIENT ALERT AWAKE ORIENTED, NOT IN ANY DISTRESS NOTED. DENIES PAIN. INITIAL ASSESSMENT INITIATED. CALL LIGHT WITHIN REACH. WILL CONTINUE TO MONITOR.
[2019-09-20] MEDS: ASPIRIN 81 MG TAB.CHEW PO SCH (08:46)
[2019-09-20] MEDS: SERTRALINE 50 MG TAB PO SCH (08:49)
[2019-09-20] MEDS: FUROSEMIDE 20 MG TAB PO SCH (08:50)
[2019-09-20] MEDS: lisinopriL 5 MG TAB PO SCH (08:51)
[2019-09-20] MEDS: carvediloL 3.125 MG TAB PO SCH (08:55)
--- NOTE | 2019-09-20 09:00 | NUR ---
ALL DUE MEDICATIONS GIVEN, AND TOLERATED WELL. SEEN BY DR. BETH. WILL CONTINUE TO MONITOR.
[2019-09-20 09:22] VITALS: BP 116/94
[2019-09-20] MEDS ORDERED: FURO-572 PO (09:48)
[2019-09-20] MEDS ORDERED: GABA800T6 PO (09:48)
[2019-09-20] MEDS ORDERED: QUET200T PO (09:48)
[2019-09-20] MEDS ORDERED: ASPI-1822 PO (09:48)
[2019-09-20] MEDS ORDERED: SERT100T1 PO (09:48)
[2019-09-20] MEDS ORDERED: CARV3.12 PO (09:48)
[2019-09-20] MEDS ORDERED: DOLU25TA PO (09:48)
[2019-09-20] MEDS ORDERED: SYN.05 PO (09:48)
[2019-09-20] MEDS ORDERED: LISI2.5T12 PO (09:48)
[2019-09-20] MEDS ORDERED: EMTR1TAB16 PO (09:48)
[2019-09-20] MEDS ORDERED: PRE.3 PO (09:48)
--- NOTE | 2019-09-20 11:27 | NUR ---
WITH DC ORDER AND WILL NOTIFY PATIENT.
[2019-09-20 12:00] VITALS: BP 102/45
--- NOTE | 2019-09-20 12:09 | NUR ---
LINK TRAINER MECHANIC NOTE: Patient's Orientation Person Situation Place Time Information Provided By PATIENT Comments SW MET PATIENT AT BEDSIDE. Corporate Law Specialist, Realtionship and Phone Number N/A Healthcare Power of Lab Aid No Does Patient Have a POLST No Identifying Problems Mental Health Homelessness/Housing Substance Abuse Is A Social Work Consult Needed No Mandate Report Filed No Explanation Of Identifying Problems PATIENT IS A 58-YEAR-OLD FEMALE ADMITTED FOR COPD AND CHF EXACERBATION. PATIENT HAS PMHX OF HIV, HEP C, COPD, CHF, HYPERTENSION, AND HYPOTHYROIDISM. Admitted From HOMELESS Pre-Admission Level Of Functioning Status Independent With DME Prior Resources/Services Used In Last 12 Months Psychiatry Services Homeless Resources Prior DME Koko Walker Living Situation Homeless Other Living Situation/Comment HOMELESS RESOURCES WERE PROVIDED TO PATIENT. PATIENT STATED SHE WOULD COORDINATE LIVING ARRANGEMENTS WITH RESOURCES PROVIDED. Patient Had Caregiver No Home Support No Caregiver Issues Financial Issues [facility] Financial Resource Referral To The Financial Counselor Needed No Factors/Needs Drug/Alcohol Treatment Retirement/Homeless Community Resources Explanation And Or Other Factors Affecting/Possible DC Needs HOMELESS RESOURCES AND MENTAL HEALTH RESOURCES WERE PROVIDED TO PATIENT. Pt/Rep Participated In Discharge Plan Yes Patient/Family Agress With Discharge Plan Yes Discharge Plan Comments TENTATIVE DISCHARGE PLAN IS FOR PATIENT TO COORDINATE LIVING ARRANGEMENTS WITH RESOURCES PROVIDED. DC Plan Status Initiated
--- NOTE | 2019-09-20 14:38 | NUR ---
PATIENT CALLING FOR PLACEMENT FOR HOMELESS PLACE. WILL CONTINUE TO MONITOR.
--- NOTE | 2019-09-20 16:12 | NUR ---
PATIENT REALLY UPSET WHEN FOLLOW UP HER DC TIME..REFUSED TO SIGN PAPERS. REMOVED IV. CALLED SECURITY TO ASSIST HER IN HER CAR, SHE SAID HER CAR IS OUTSIDE. IN STABLE CONDITION.
[2019-09-22 06:25] LABS: LD1 FRACTION 29 % (17-32); LD2 FRACTION 34 % (25-40); LD3 FRACTION 21 % (17-27); LD4 FRACTION 7 % (5-13); LD5 FRACTION 9 % (4-20)
== END 2019-09-20 16:05 | disposition home or self-care (01) | DRG 194 ==
LOC: MED 17:50 → EEVIPCON 20:43 → MTU 20:43
PROVIDERS: ADMIT General Practice; ATTEND General Practice
DX: I11.0 Hypertensive heart disease with heart failure (principal); D69.6 Thrombocytopenia, unspecified; J44.1 Chronic obstructive pulmonary disease with (acute) exacerbation; I50.43 Acute on chronic combined systolic (congestive) and diastolic (congestive) heart failure; E87.6 Hypokalemia; Z20.828 Contact with and (suspected) exposure to other viral communicable diseases; F32.9 Major depressive disorder, single episode, unspecified; E03.9 Hypothyroidism, unspecified; Z56.0 Unemployment, unspecified; Z91.19 Patient's noncompliance with other medical treatment and regimen; F14.10 Cocaine abuse, uncomplicated; R65.10 Systemic inflammatory response syndrome (SIRS) of non-infectious origin without acute organ dysfunction
CPT/HCPCS: 36415; 71045; 80048; 80053; 80305; 81001; 82150; 82728; 83036; 83625; 83690; 83735; 83880; 84100; 84439; 84443; 84484; 85025; 85379; 85610; 85651; 85730; 86140; 87040; 87081; 87086; 93005; 96374; 96375; 99291; J1644; J1940; J2930; Q0092; U0003-CS